=== PATIENT | male | born 1995 | race Hispanic/Latino ===

== ENCOUNTER 2017-12-05 18:46 | Emergency (ER) | payer OTHER | END 2017-12-05 22:23 | disposition home or self-care (01) | LOC: M ED 18:46 | DX: S00.31XA Abrasion of nose, initial encounter (principal); S80.02XA Contusion of left knee, initial encounter; S46.911A Strain of unspecified muscle, fascia and tendon at shoulder and upper arm level, right arm, initial encounter; V86.14XA Passenger of military vehicle injured in traffic accident, initial encounter; Y92.410 Unspecified street and highway as the place of occurrence of the external cause; Y99.1 Military activity | CPT/HCPCS: 73030 ==